=== PATIENT | female | born 1965 | race Caucasian/White ===

== ENCOUNTER 2023-04-17 09:49 | Outpatient (CLI) | payer OTHER, SELFPAY ==
--- NOTE | 2023-04-17 15:14 | OP.DCCON ---
Reason for Visit: 79156 E11.9 Person Interviewed: Patient Medical History, Labs and Background: DM2 diagnosed in 2016, RA, back issues, HLD Height: 5 ft 3 in Weight: 218 lb BMI: 38.7 kg/m2 Weight History: Francisca took Namrata for 3 mos of hell in her words as she was constipated and bloated and food did not move through her body like it normally would. In the end she only lost 6 lbs. 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 After birthing 3 girls she started gaining weight. Concerns and Goals: She would like to lose weight. Sleep Hygiene: She recently started Lunesta to help with sleep. Francisca said if she doesn't have good sleep she is emotionally out of sorts so sleep is a must. We talked about how your hunger hormones are also dysregulated when sleep habits are off. Physical Activity: Francisca said she works from home and sits. But she takes big breaks throughout the day and consequently finishes late at night so it is difficult to figure out a time for exercise/activity. GI Symptoms: Constipation (Constipation was only an issue with Namrata, otherwise she is fairly regular.) and Other Feeding Issues: None Other Feeding Issues: Love coca cola Food Allergies and Sensitivities: NKA 24 Hour Recall: Breakfast Time: 8:30 activia yogurt + water Snack Time: Lunch Time: 11:30 li + tomato or ham + cheese sandwich Snack Time: Dinner Time: tuna salad sandwich or chx noodle soup Snack Time: potato chips or chips and queso Soda vs Milk vs Water: Francisca used to drink 8-10 cokes/day, not buys a mini 6 pack and drinks them only on weekend, no coffee, loves cucumber + lemon water. Additional Comments: Francisca's likes [employer] Debbies for snacks, she prefers potato chips or chips + queso. Vegetables are not her thing so we talked about ones she would be willing to sneak in . During her teens she described herself as a bad eater who loved junk food. Her support system would be her daughters and Ti her . Recommendations: Assessment: Francisca is frustrated with where she is and is motivated to change. Nutrition Dx: Excessive energy intake r/t habits and patterns AEB BMI of 38.7 kg/m2. Intervention: When she said she didn't have time for exercise I suggested she has the perfect situation in that she can do exercise during the hour long breaks she takes throughout the day. Because she doesn't want to go to the gym I suggested finding online videos and included one in the email I sent. Second, we discussed starting off her day with cucumber and lemon water because that takes away her thirst for cokes. Next I recommended Adele Ramos's set of 4 free videos on weight loss. Next we talked about sneaking in veggies in smoothies and mixing them with berries to mask the taste. We discussed the importance of balancing out carb choices with healthy fats and proteins - and what that looked like in snacks and meals. Lastly we made a list of healthy snacks for her to have on hand. Monitoring and Evaluation: We discussed the need for a support system to both encourage her and ask her about her goals and she chose her daughters and . Since I am emailing her goals to her she will have my email and phone number for f/u. Coding Level of Care Code Nutrition/Individ/Init 60 min Time Spent (min) 60
== END 2023-04-17 09:50 | disposition home or self-care (01) ==
LOC: DIET 09:50
PROVIDERS: PCP Nurse Practitioner; Visit Provider Internal Medicine
DX: Z71.3 Dietary counseling and surveillance (principal); E11.9 Type 2 diabetes mellitus without complications; Z68.38 Body mass index [BMI] 38.0-38.9, adult
CPT/HCPCS: 97802